=== PATIENT | male | born 1965 | race Caucasian/White ===

== ENCOUNTER 2022-05-07 10:34 | Emergency (ER) | payer MEDICARE ==
[~2022-05-07] VITALS: Ht 185.5 cm; Wt 115.7 kg
--- NOTE | 2022-05-07 14:21 | Diagnostic Imaging Report ---
RIBS/UNILATERAL WITH CHEST INDICATION: Right-sided rib pain COMPARISON: None available. TECHNIQUE: PA chest with 2 views of right ribs FINDINGS: Lungs are clear. No pleural effusion or pneumothorax. Heart is normal in size. No acute or healing rib fracture. IMPRESSION: No right-sided rib fracture or pneumothorax. Dictated by: Dictated on workstation # [id number]
--- NOTE | 2022-05-07 14:25 | ED Chest Pain ---
General Chief Complaint: Chest Wall Stated Complaint: RIB INJ Nursing Triage Note: Pt ambulates to ER with c/o Right rib pain. Pt states he was moving a refrigerator and used his ribs to hold it up. Pt has been taking fentanyl and percocet last dose was on saturday. Source: patient Exam Limitations: no limitations History of Present Illness Date Seen by Provider: May 07, 2022 Allergies and Home Medications Allergies Coded Allergies: No Known Drug Allergies (Unverified , 05/07/22) Past Gmqqazr-Aimjyb-Gylzom Hx Patient Social History Tobacco Use?: No Use of E-Cig and/or Vaping dev: No Substance use?: No Alcohol Use?: Yes Alcohol Frequency: Once in a while Pt feels they are or have been: No Immunizations Up To Date Influenza Vaccine Up-to-Date: No; Not Current First/Initial COVID19 Vaccinat: DENIES Past Medical History Surgery/Hospitalization HX: HTN, SPONTANEOUS PNUEMOTHORAX X3 MULTIPLE SPINAL SURGERIES, JOSSELINE Physical Exam Vital Signs Vital Signs - First Documented 05/07/22 11:23 Temp 36.9 Pulse 94 Resp 16 B/P (MAP) 140/93 (109) Pulse Ox 94 O2 Delivery Room Air Capillary Refill : Height, Weight, BMI Height: '" Weight: lbs. oz. kg; 33.00 BMI Method: Progress/Results/Core Measures Results/Orders My Orders Orders - ELVA CAMPBELL APRN Ribs/Unilateral With Chest (05/07/22 12:06) Vital Signs/I&O 05/07/22 11:23 Temp 36.9 Pulse 94 Resp 16 B/P (MAP) 140/93 (109) Pulse Ox 94 O2 Delivery Room Air Blood Pressure Mean: 109 Departure Impression Primary Impression: Rib pain on right side Disposition: 01 HOME, SELF-CARE Condition: Stable Departure-Patient Inst. Decision time for Depature: 14:25 Referrals: NO,LOCAL PHYSICIAN (PCP/Family) Primary Care Physician Patient Instructions: Bruised Rib (DC) ELVA CAMPBELL APRN May 07, 2022 14:25
[2022-05-07 14:32] VITALS: BP 148/99
== END 2022-05-07 14:32 | disposition home or self-care (01) ==
LOC: ER 10:38
DX: R07.81 Pleurodynia (principal); Z28.310 Unvaccinated for COVID-19
CPT/HCPCS: 71101